=== PATIENT | female | born 2000 | race Two or more races ===

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

== ENCOUNTER → 2022-03-25 | Outpatient (CLI) | payer BC ==
[~2022-03-25] MED LIST: bcp
== END ==
LOC: M RAD 16:18
PROVIDERS: ATTEND Otolaryngology
DX: H90.11 Conductive hearing loss, unilateral, right ear, with unrestricted hearing on the contralateral side (principal)

== ENCOUNTER → 2024-05-30 | Outpatient (CLI) | payer OTHER | LOC: M RAD 11:42 | PROVIDERS: ATTEND Nurse Practitioner Adult Health | DX: D48.7 Neoplasm of uncertain behavior of other specified sites (principal) ==